=== PATIENT | female | born 1945 | race Caucasian/White ===

== ENCOUNTER 2017-06-09 11:55 | Outpatient (CLI) | payer MEDICARE ==
--- NOTE | 2017-06-09 13:35 | CT ---
CT OF THE THORAX WITH IV CONTRAST: Date: 06/09/17 INDICATION: History of shortness of breath and cough. COMPARISON: Chest radiograph dated 02/12/13. FINDINGS: There is severe centrilobular and paraseptal emphysema. There is a moderate amount of bullous disease present, particularly in the right lower lobe and both upper lobes. There is air space consolidation within the posterior segment of the right upper lobe, as well as within the inferior segment of the lingula. No pleural effusion is evident. There is a small sub-4 mm pulmonary nodule within the emergency medicine physician assistant olateral right lower lobe on image 51 of series 3. There are patchy reticular nodularities seen withi n the posterior segment of the right lower lobe. There is an enlarged precarinal lymph node measuring 1.4 cm. There is scattered vascular calcification involving the thoracic aorta. Visualized adrenal g lands are normal appearing. Liver and spleen are unremarkable. There is scattered degenerative and os teoarthritic change. IMPRESSION: 1. Findings of multifocal pneumonia involving the right upper lobe and lingula. There is some reticu lar nodularity also within the superior segment of the right lower lobe suspicious for component of b ronchiolitis. Recommend CT follow-up to resolution. 2. Severe emphysema. 3. Enlarged precarinal lymph node may be reactive in nature. CODE T. POS: [facility]
== END 2017-06-09 11:56 | disposition home or self-care (01) ==
LOC: CT 11:55
PROVIDERS: ATTEND Nurse Practitioner Family
DX: F17.200 Nicotine dependence, unspecified, uncomplicated (principal); R07.9 Chest pain, unspecified; J01.10 Acute frontal sinusitis, unspecified; R09.81 Nasal congestion; R05 Cough; J18.9 Pneumonia, unspecified organism; J43.9 Emphysema, unspecified; R59.0 Localized enlarged lymph nodes; R91.8 Other nonspecific abnormal finding of lung field
CPT/HCPCS: 71260

== ENCOUNTER 2017-06-10 11:11 | Inpatient (IN) | payer MEDICARE ==
[2017-06-10 12:08] LABS: #Eosinphils 0.1 thou/uL (0.0-0.7); #Lymphocytes 1.5 thou/uL (1.20-3.40); #Monocytes 1.4 thou/uL (0.11-0.59); #Neutrophils 10.6 thou/uL (1.40-6.50); %Basophils 0.3 % (0.0-1.0); %Eosinophils 0.6 % (0.0-10.0); %Lymphocytes 10.7 % (21.0-51.0); %Monocytes 10.2 % (0.0-10.0); %Neutrophils 78.2 % (42.0-75.0); Hemoglobin 13.4 g/dL (12.0-16.0); Mean Corpuscular HGB CONC 32.9 g/dL (32.0-36.0); Mean Corpuscular Hemoglobin 31.5 pg (27.0-31.0); Mean Corpuscular Volume 95.7 fl (81.0-99.0); Mean Platelet Volume 7.3 fL (7.4-10.4); Platelet Count 295 thou/uL (130-400); RBC Distribution Width 11.3 % (11.5-14.5); Red Blood Cell (RBC) Count 4.25 mill/uL (4.20-5.40); White Blood Cell (WBC) Count 13.5 thou/uL (4.8-10.8)
[2017-06-10] MEDS ORDERED: Azithromycin 500 MG VIAL ONE (12:30)
[2017-06-10 12:31] LABS: ALT (SGPT) 14 U/L (8-55); AST (SGOT) 19 U/L (5-34); Albumin 4.1 g/dL (3.4-4.8); Alkaline Phosphatase 82 U/L (40-150); Anion Gap 14 mmol/L (10-20); BUN (Urea Nitrogen) 15 mg/dL (9.8-20.1); Bilirubin, Total 0.6 mg/dL (0.2-1.2); Calc. Creatinine Clearance 0 mL/min (70-130); Calcium 9.8 mg/dL (7.8-10.44); Carbon Dioxide 22 mmol/L (23-31); Chloride 104 mmol/L (98-107); Estimated GFR-MDRD 69; Globulin 3.4 g/dL (2.4-3.5); Glucose 98 mg/dL (83-110); Potassium 4.2 mmol/L (3.5-5.1); Protein, Total 7.5 g/dL (6.0-8.3); Sodium 136 mmol/L (136-145)
[2017-06-10 12:47] LABS: Bilirubin Negative (Negative); Blood, Urine Moderate (Negative); Clarity CLEAR (Clear); Glucose, Urine (Dipstick) Negative (Negative); Leukocyte Small (Negative); Nitrite Negative (Negative); Protein, Urine (Dipstick) 30 mg/dL (Neg-Trace); Specific Gravity, Urine 1.014 (1.002-1.036); Urobilinogen 0.2 mg/dL (0.2-1.0)
[2017-06-10 12:50] LABS: Bacteria/HPF None Seen HPF (None Seen); Hyaline Casts/LPF 0-3 HYALINE CAST LPF (0-3 Hyaline); Pathc Cast-AUWi Flag 0.14 (0-2.49); Squamous Epithelial 0-3 HPF (0-3); WBC/HPF 0-3 HPF (0-3)
[2017-06-10] MEDS ORDERED: ISOVUE-370 76%-LOCM 1 ML ONE (13:12)
[2017-06-10] MEDS ORDERED: methylPREDNISolone Sod Succ/PF 125 MG/2 ML VIAL ONE (13:22)
[2017-06-10] MEDS ORDERED: Albuterol Sulfate 2.5 mg/3 ml Neb NEB PRN (13:29)
[2017-06-10] MEDS ORDERED: Sodium Chloride 0.9% 500 ML IV SCH (14:00)
[2017-06-10] MEDS ORDERED: Acetaminophen 325 MG TAB PO PRN (14:14)
--- NOTE | 2017-06-10 14:59 | HP ---
PRIMARY CARE PHYSICIAN: Ric Myers D.O. PRESENTING COMPLAINT: Shortness of breath. HISTORY OF PRESENT ILLNESS: Ms. Hien Byrd is a 72-year-old female with a past medical history of [place] PD and hypothyroidism, who presents to the emergency room with complaints of shortness of breath, whi ch has been on for the past 3 weeks. It is associated with cough productive of yellowish sputum and subjective fevers. She went to her nurse practitioner, who placed her on a 10-day treatment of amoxi cillin for upper respiratory tract infection. However, her symptoms persisted and she presented to [facility] emergency room yesterday after being sent in from her outpatient care provider for a CT scan. The CT scan showed multilobar right-sided pneumonia, and she was sent to the emergency room for further care. At the emergency room today, she was found to be short of breath, slightly tachycardic. Labs were essentially normal, apart from an elevated WBC count of 13,500. She was started on nebulizer th erapy, given one dose of IV Solu-Medrol. She was also given IV ceftriaxone and azithromycin after bl ood cultures have been collected. She was then admitted for further care. PAST MEDICAL HISTORY: As stated in HPI. PAST SURGICAL HISTORY: Hysterectomy, bladder tumor removal, cataract surgery. FAMILY HISTORY: Reviewed and noncontributory. SOCIAL HISTORY: Smokes 3-4 cigarettes daily now. She reports she has cut down, but has a 50+ years of smoking. Does not drink alcohol or use illicit drugs. ALLERGIES: SULFA. HOME MEDICATIONS: Albuterol sulfate inhaler 2 puffs q.6 hours p.r.n. for shortness of breath, Centru m Silver, prednisone 20 mg b.i.d., Synthroid dose unconfirmed, tramadol 50 mg tablet 1-2 tablets p.o. q.6 hours p.r.n. for pain, vitamin D 5000 units daily, amoxicillin/potassium clavulanate 875 mg/125 mg tablet b.i.d., Mucinex 1200 mg b.i.d., minocycline dose unconfirmed. REVIEW OF SYSTEMS: Ten-point review of systems conducted and negative except as stated in HPI. Elder es chest pain, palpitations, PND, orthopnea, lower extremity edema. She has no abdominal or urinary symptoms. She is alert and well oriented. PHYSICAL EXAMINATION: GENERAL: Not in acute distress, sitting comfortably in bed. HEENT: Normocephalic, atraumatic. Not pale, anicteric. Moist mucous membrane. PERRLA. EOMI. RESPIRATORY: Reduced breath sounds bilaterally, but no overt wheezes, rales, or rhonchi. CARDIOVASCULAR: S1, S2, only with no murmurs, rubs, or gallops. Regular rate and rhythm. ABDOMEN: Soft, nontender, nondistended. Bowel sounds normoactive. No hepatosplenomegaly. NEUROLOGIC: Alert and well-oriented to time, place and person. No focal deficits. SKIN: Warm, dry, well-perfused. No rashes or lesions. MUSCULOSKELETAL: No edema. Full range of movement in all extremities. PSYCHIATRIC: Normal mood and affect. LABORATORY DATA: As stated in HPI. IMAGING: CT chest done yesterday with IV contrast revealed multifocal pneumonia involving the right upper lobe and lingula. There was also some reticular nodularity also within the superior segment of the right lower lobe suspicious for comment of bronchiolitis. Recommended CT followup to resolution . Also showed severe emphysema and enlarged precarinal lymph node, which may be reactive in nature. ASSESSMENT AND PLAN: 1. Pneumonia: As stated above, the patient has multilobar pneumonia. She has started on IV antibio tics, steroids, and nebulized bronchodilator therapy. We will monitor the patient's response. We wi ll also follow up on blood cultures. 2. Hypothyroidism: Patient is slightly tachycardic on arrival. TSH done yesterday was on the low s bhargavi. We will obtain a free T4 and continue Synthroid dose once it has been confirmed. 3. Chronic obstructive pulmonary disease: Patient is on home nebulizer. She does not seem to be in exacerbation. She has been started on steroids for treatment of pneumonia, as well as antibiotics a nd bronchodilator therapy. We will follow to resolution. CODE STATUS: FULL CODE. Deep venous thrombosis prophylaxis, subcutaneous heparin.
--- NOTE | 2017-06-10 17:42 | CT ---
CT ANGIOGRAM OF THE CHEST 06/10/17 COMPARISON: Chest CT 06/09/17. HISTORY: Shortness of breath, tachycardia, positive D-dimer. TECHNIQUE: Serial axial CT imaging at 2.5 mm intervals from thoracic inlet through upper abdomen with IV contras t using a Ct angiogram protocol. Coronal and oblique sagittal 3D reformatted imaging obtained. FINDINGS: There is no lymphadenopathy in the axillary or hilar regions. There is a stable mildly enlarged 1.3 c m precarinal lymph node. Imaged upper abdomen demonstrates a small hypodense lesion in the mid pole l eft kidney suggesting a cyst. The adrenal glands appear thickened but attain an adeniform shape. Ther e are scattered atherosclerotic calcifications of the imaged abdominal aorta and its branches. There is no significant pleural, pericardial, or mediastinal fluid. There is atherosclerotic calcifications of the aortic arch extending into the origin of the great vessels. There is extensive prominent emphysematous change seen throughout both lungs. There is a focal area of peripheral pleural based mass-like soft tissue density in the lingula/left u pper lobe anteriorly on axial image 55 measuring 1.8 cm in greatest transverse dimension, grossly unc hanged when compared to prior imaging performed 06/09/17. No focal area of pulmonary parenchymal opacity or mass/nodule seen in the left lower lobe. There is a focal area of mass-like consolidative change within the posterior aspect of the right uppe r lobe, best seen on image 34 measuring 4.6 x 4.1 cm, similar when compared to the 05/13/17 exam as wel l. There is either cavitary change or air bronchogram formation associated with this area of abnormal ity. The right middle lobe demonstrates no focal consolidation, mass lesion or nodule. The right lowe r lobe demonstrates no focal consolidation, mass lesion or nodule. Review of the pulmonary arterial vasculature demonstrates no evidence for acute pulmonary embolism. R eview of the osseous structures demonstrate scattered degenerative change within the imaged spine. IMPRESSION: 1. Focal areas of mass-like consolidative change noted in left upper lobe anteriorly and right u pper lobe posteriorly, unchanged when compared to 05/13/17 exam. Findings are most concerning for multi focal infectious pneumonitis. Followup to resolution in 4-6 weeks advised. 2. Severe emphysematous change. 3. No evidence for pulmonary embolism. POS: [facility]
[2017-06-10] MEDS ORDERED: Acetaminophen 325 MG TAB ONE (17:55)
[2017-06-10] MEDS ORDERED: guaiFENesin ER 600 MG TAB PO SCH (21:00)
[2017-06-10] MEDS: Heparin 5,000 UNITS/ML VIAL SC SCH ×2 (21:28→21:38)
[2017-06-10] MEDS: Docusate 100 MG CAP PO SCH (21:38)
[2017-06-10] MEDS: guaiFENesin ER 600 MG TAB PO SCH (21:38)
[2017-06-10] MEDS: Melatonin 3 MG TAB PO SCH ×2 (22:11→22:27)
[2017-06-10 22:15] VITALS: BMI 24.5
[2017-06-11 04:30] LABS: #Lymphocytes 0.8 thou/uL (1.20-3.40); #Monocytes 0.3 thou/uL (0.11-0.59); #Neutrophils 7.8 thou/uL (1.40-6.50); %Eosinophils 0.1 % (0.0-10.0); %Lymphocytes 8.4 % (21.0-51.0); %Monocytes 3.5 % (0.0-10.0); Hemoglobin 11.9 g/dL (12.0-16.0); Mean Corpuscular HGB CONC 33.6 g/dL (32.0-36.0); Mean Corpuscular Hemoglobin 32.1 pg (27.0-31.0); Mean Corpuscular Volume 95.6 fl (81.0-99.0); Mean Platelet Volume 7.5 fL (7.4-10.4); Platelet Count 271 thou/uL (130-400); RBC Distribution Width 11.1 % (11.5-14.5); Red Blood Cell (RBC) Count 3.69 mill/uL (4.20-5.40); White Blood Cell (WBC) Count 8.9 thou/uL (4.8-10.8)
[2017-06-11 04:40] LABS: Anion Gap 12 mmol/L (10-20); BUN (Urea Nitrogen) 19 mg/dL (9.8-20.1); Calc. Creatinine Clearance 62 mL/min (70-130); Calcium 9.4 mg/dL (7.8-10.44); Carbon Dioxide 23 mmol/L (23-31); Chloride 107 mmol/L (98-107); Estimated GFR-MDRD 76; Glucose 212 mg/dL (83-110); Sodium 138 mmol/L (136-145)
[2017-06-11] MEDS ORDERED: predniSONE 20 MG TAB PO SCH ×3 (08:00→09:45)
[2017-06-11] MEDS ORDERED: cefTRIAXone\\ROCEPHIN 1 GM, Syringe 0.4 ML in Sterile Water 9.6 ML SLOW IVP SCH (09:00)
[2017-06-11] MEDS ORDERED: cefTRIAXone\\ROCEPHIN 1 GM in Sodium Chloride 0.9% 100 ML IVPB SCH (09:00)
[2017-06-11] MEDS ORDERED: Azithromycin 250 MG TAB PO SCH (09:00)
[2017-06-11] MEDS: guaiFENesin ER 600 MG TAB PO SCH (09:03)
[2017-06-11] MEDS: Docusate 100 MG CAP PO SCH ×2 (09:03→20:40)
[2017-06-11] MEDS: Heparin 5,000 UNITS/ML VIAL SC SCH ×3 (09:04→20:42)
[2017-06-11] MEDS: Ibuprofen 200 MG TAB PO PRN ×3 (10:53→20:41)
--- NOTE | 2017-06-11 15:20 | PQF ---
CLINICAL DOCUMENTATION IMPROVEMENT CLARIFICATION FORM: ICD-10 Updated PLEASE DO AN ADDENDUM TO THE PROGRESS NOTE WITH ANY DOCUMENTATION UPDATES OR ADDITIONS AND CARRY THROUGH TO DC SUMMARY. THANK YOU. DATE: 06/11/17 ATTN: DR. BLAS Please exercise your independent, professional judgment in responding to the clarification form. Clinical indicators are provided on the bottom of this form for your review Please check appropriate box(es): [ ] Sepsis due to: (Pna, UTI, gangrenous gall bladder, etc.) Due to: [ ] Device (please specify) [ ] Implant [ ] Graft [ ] Infusion [ ] SIRS due to non-infectious process (please specify etiology) [ ] with organ dysfunction [ ] without organ dysfunction [ ] Severe sepsis with acute organ dysfunction of: (Examples: respiratory failure, encephalopathy, acute kidney failure, other) [ ] Septic Shock [ ] Localized infection without sepsis [ ] Other diagnosis [ ] Unable to determine In addition, please specify: Present on Admission (POA): [ ] Yes [ ] No [ ] Unable to determine For continuity of documentation, please document condition throughout progress notes and discharge summary. Thank You. 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 All Rights Reserved [email or web address] [place] Office: [phone] [facility]
--- NOTE | 2017-06-11 16:40 | PDOC.PN ---
- Subjective Encounter Start Date: 06/11/17 Encounter Start Time: 09:45 -: old records requested/rev Pt seen and examined, chart reviewed in its entirety, this is my first visit with this patient. Pt seen on the medical [facility], transferred by Dr eric earlier Pt states breathing is at baseline, 98% on 2l NC, feels tired. explained anemia and stability to pt, informed she would start on iron replacememnt. No F/C, no N/v/D/C, no CP, some Clemons, no orthopnea - Objective Resuscitation Status: Resuscitation Status FULL:Full Resuscitation MAR Reviewed: Yes Vital Signs & Weight: Vital Signs (12 hours) Temp Pulse Resp BP Pulse Ox 06/11/17 16:30 98.4 F 92 18 123/55 L 94 L 06/11/17 12:00 98.0 F 84 16 119/71 96 06/11/17 08:00 97.9 F 86 16 06/11/17 07:53 97.9 F 86 16 102/53 L 95 06/11/17 06:57 83 16 94 L 06/11/17 05:16 97.8 F 78 18 108/64 95 Weight Weight 129 lb 8 oz I&O: 06/10/17 06/11/17 06/12/17 06:59 06:59 06:59 Intake Total 740 480 Balance 740 480 Result Diagrams: 06/11/17 04:02 06/11/17 04:02 Additional Labs: Accuchecks 06/11/17 04:47 POC Glucose 172 H Radiology Reviewed by me: Yes EKG Reviewed by me: Yes Phys Exam - Physical Examination Constitutional: NAD HEENT: PERRLA, moist MMs, sclera anicteric, oral pharynx no lesions Neck: no nodes, no JVD, supple, full ROM Respiratory: no wheezing, no rales, no rhonchi, clear to auscultation bilateral Cardiovascular: RRR, no significant murmur, no rub Gastrointestinal: soft, non-tender, no distention, positive bowel sounds Musculoskeletal: pulses present, edema present Neurological: non-focal, normal sensation, moves all 4 limbs Lymphatic: no nodes Psychiatric: normal affect, A&O x 3 Skin: no rash, normal turgor, cap refill <2 seconds Dx/Plan (1) Iron deficiency anemia Code(s): D50.9 - IRON DEFICIENCY ANEMIA, UNSPECIFIED Status: Chronic Qualifiers: Iron deficiency anemia type: inadequate dietary iron intake Qualified Code( s): D50.8 - Other iron deficiency anemias Comment: iron deficiiency seen exacerbated by Tib/Fib fracture recentyl, but not improving, add in FeSOR BID (2) COPD (chronic obstructive pulmonary disease) Status: Acute Qualifiers: COPD type: COPD with acute exacerbation Qualified Code(s): J44.1 - Chronic obstructive pulmonary disease with (acute) exacerbation Comment: nebs, steroids, o2, wean to keep sats 90-92% on 3L at home (3) Hypothyroidism Code(s): E03.9 - HYPOTHYROIDISM, UNSPECIFIED Status: Chronic Qualifiers: Hypothyroidism type: acquired Qualified Code(s): E03.9 - Hypothyroidism, unspecified (4) PNA (pneumonia) Code(s): J18.9 - PNEUMONIA, UNSPECIFIED ORGANISM Status: Acute Qualifiers: Pneumonia type: due to unspecified organism Laterality: unspecified laterality Lung location: unspecified part of lung Qualified Code(s): J18.9 - Pneumonia, unspecified organism Comment: community acquired, covered with antibiotics for now - Plan cont current plan of care, PT/OT, respiratory therapy, out of bed/ambulate * .
[2017-06-11] MEDS: Ferrous Sulfate 325 MG TAB PO SCH (19:08)
[2017-06-11] MEDS ORDERED: Non-Formulary Item 1 EACH (Zolpidem Tartrate [Ambien] 10 MG) PO SCH (21:00)
[2017-06-11] MEDS ORDERED: Zolpidem Tartrate 5 MG TAB PO SCH (21:00)
[2017-06-12 04:46] LABS: #Lymphocytes 2.4 thou/uL (1.20-3.40); #Monocytes 0.8 thou/uL (0.11-0.59); #Neutrophils 13.1 thou/uL (1.40-6.50); %Eosinophils 0.1 % (0.0-10.0); %Lymphocytes 14.9 % (21.0-51.0); %Monocytes 4.8 % (0.0-10.0); %Neutrophils 80.2 % (42.0-75.0); Hemoglobin 11.2 g/dL (12.0-16.0); Mean Corpuscular HGB CONC 32.9 g/dL (32.0-36.0); Mean Corpuscular Hemoglobin 31.2 pg (27.0-31.0); Mean Corpuscular Volume 94.7 fl (81.0-99.0); Mean Platelet Volume 7.1 fL (7.4-10.4); Platelet Count 294 thou/uL (130-400); RBC Distribution Width 11.3 % (11.5-14.5); Red Blood Cell (RBC) Count 3.58 mill/uL (4.20-5.40); White Blood Cell (WBC) Count 16.4 thou/uL (4.8-10.8)
[2017-06-12 05:00] LABS: Anion Gap 12 mmol/L (10-20); BUN (Urea Nitrogen) 20 mg/dL (9.8-20.1); Calc. Creatinine Clearance 59 mL/min (70-130); Calcium 9.2 mg/dL (7.8-10.44); Carbon Dioxide 25 mmol/L (23-31); Chloride 107 mmol/L (98-107); Estimated GFR-MDRD 71; Glucose 205 mg/dL (83-110); Potassium 3.9 mmol/L (3.5-5.1); Sodium 140 mmol/L (136-145)
[2017-06-12] MEDS: Ibuprofen 200 MG TAB PO PRN ×3 (05:10→15:33)
[2017-06-12] MEDS ORDERED: Levothyroxine Sodium 100 MCG TAB PO SCH ×3 (06:00)
[2017-06-12] MEDS ORDERED: predniSONE 20 MG TAB PO SCH (08:00)
[2017-06-12] MEDS: Heparin 5,000 UNITS/ML VIAL SC SCH ×2 (08:16→15:33)
[2017-06-12] MEDS: Docusate 100 MG CAP PO SCH (08:17)
[2017-06-12] MEDS ORDERED: AST PO SCH (09:00)
[2017-06-12] MEDS ORDERED: DHA PO SCH (09:00)
[2017-06-12] MEDS ORDERED: PHOSPHO PO SCH (09:00)
[2017-06-12] MEDS ORDERED: Non-Formulary Item 1 EACH (Multivit-Min/Iron/Folic/Lutein [Centrum Silver Women] 1 TAB) PO SCH (09:00)
[2017-06-12] MEDS ORDERED: Multivit, Therapeutic 1 TAB PO SCH (09:00)
[2017-06-12] MEDS ORDERED: VITAMIN D 5000 UNIT PO SCH (09:00)
[2017-06-12] MEDS ORDERED: Non-Formulary Item 1 EACH (Ubidecarenone [Coq-10] 50 MG) PO SCH (09:00)
[2017-06-12] MEDS ORDERED: [UNRECOGNIZED DRUG - OTHER] PO SCH (09:00)
[2017-06-12] MEDS ORDERED: KRILL PO SCH (09:00)
[2017-06-12] MEDS ORDERED: SYNTHROID 100 MCG PO SCH (09:00)
[2017-06-12] MEDS ORDERED: Ubidecarenone 50 MG CAP PO SCH (09:00)
[2017-06-12] MEDS ORDERED: EPA PO SCH (09:00)
[2017-06-12] MEDS: Ferrous Sulfate 325 MG TAB PO SCH (10:08)
--- NOTE | 2017-06-12 11:27 | PDOC.PN ---
- Subjective Encounter Start Date: 06/11/17 Encounter Start Time: 09:45 -: old records requested/rev Pt seen and examine, chart reviewed in its entirety, this is my first visit with this patient Pt admitted for SOB, chest pressure, transferred to R/O PE. On arrival CTa negative. pt requesting CT brain due to elevated DDimer and left sided shooting headache to r/o blood clot. Just has contrast, explained low yield and DDimer barely abnormal but i would discuss with radiology also requesting ibuprofen for pain as tylenol not effective. also wants her ambien 10mg at bedtime No F/C, no N/V/D/c, no acute overnight events 10 point ROS performed and neg for all systems except as per HPI - Objective Resuscitation Status: Resuscitation Status FULL:Full Resuscitation MAR Reviewed: Yes Vital Signs & Weight: Vital Signs (12 hours) Temp Pulse Pulse Pulse Pulse Resp BP 06/12/17 09:16 90 93 96 126/74 06/12/17 08:00 97.5 F L 79 16 06/12/17 00:31 84 12 BP Pulse Ox Pulse Ox Pulse Ox Pulse Ox 06/12/17 09:16 95 95 91 L 06/12/17 08:00 114/62 90 L 06/12/17 00:31 97 Weight Weight 129 lb 8 oz I&O: 06/11/17 06/12/17 06/13/17 06:59 06:59 06:59 Intake Total 740 2760 Balance 740 2760 Result Diagrams: 06/12/17 04:32 06/12/17 04:32 Radiology Reviewed by me: Yes EKG Reviewed by me: Yes Phys Exam - Physical Examination Constitutional: NAD HEENT: PERRLA, moist MMs, sclera anicteric, oral pharynx no lesions Neck: no nodes, no JVD, supple, full ROM Respiratory: no wheezing, no rales, no rhonchi, clear to auscultation bilateral Cardiovascular: RRR, no significant murmur, no rub Gastrointestinal: soft, non-tender, no distention, positive bowel sounds Musculoskeletal: no edema, pulses present Neurological: non-focal, normal sensation, moves all 4 limbs Lymphatic: no nodes Psychiatric: normal affect, A&O x 3 Skin: no rash, normal turgor, cap refill <2 seconds Dx/Plan (1) COPD (chronic obstructive pulmonary disease) Status: Acute Qualifiers: COPD type: COPD with acute exacerbation Qualified Code(s): J44.1 - Chronic obstructive pulmonary disease with (acute) exacerbation Comment: nebs, steroids, o2, wean to keep sats 90-92% no O2. on RA already (2) Hypothyroidism Code(s): E03.9 - HYPOTHYROIDISM, UNSPECIFIED Status: Chronic Qualifiers: Hypothyroidism type: acquired Qualified Code(s): E03.9 - Hypothyroidism, unspecified (3) PNA (pneumonia) Code(s): J18.9 - PNEUMONIA, UNSPECIFIED ORGANISM Status: Acute Qualifiers: Pneumonia type: due to unspecified organism Laterality: unspecified laterality Lung location: unspecified part of lung Qualified Code(s): J18.9 - Pneumonia, unspecified organism Comment: community acquired, covered with antibiotics for now - Plan cont current plan of care, continue antibiotics, respiratory therapy, out of bed /ambulate * .
[2017-06-12] MEDS ORDERED: Gadobenate Dimeglumine 529 MG/1 ML (20ML VIAL) ONE (13:26)
--- NOTE | 2017-06-12 15:21 | MRI ---
BRAIN MRI WITH AND WITHOUT CONTRAST: CLINICAL HISTORY: Headache. Elevated D-dimer with concern for dural sinus thrombosis. FINDINGS: Ventricular system is age-appropriate in size. There is no acute territorial infarction, intracrania l mass effect, or midline shift. There are scattered areas of white matter signal alteration present bilaterally favoring mild chronic microvascular ischemic disease. No hemorrhagic susceptibility. 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 No s ignificant filling defects of the contrast opacified dural venous sinuses. Skull flow voids are blas nt. There is mild parenchymal volume loss with increased CSF overlying the left frontal regions. IMPRESSION: 1. No acute intracranial abnormalities. 2. Findings most consistent with mild chronic microvascular ischemic disease. POS: [facility]
--- NOTE | 2017-06-12 15:28 | MRI ---
THREE D TIME OF FLIGHT MRV BRAIN WITH 3D VOLUME RENDERING: CLINICAL INDICATION: Headache, elevated D-dimer with clinical concern for dural sinus thrombosis. FINDINGS: The superior sagittal sinus, inferior sagittal sinus, straight sinus, transverse sinuses, and sigmoid sinuses reveal no significant filling defect. There is flow-related artifactual diminished signal a t the medial aspect of the left transverse sinus. There is also flow-related signal alteration at th e right sigmoid sinus and right internal jugular vein. IMPRESSION: There is no significant abnormality at the dural vein sinuses. POS: [facility]
[2017-06-12 18:19] VITALS: BP 146/83; TEMP 98.1
== END 2017-06-12 19:05 | disposition home or self-care (01) | DRG 190 ==
LOC: ERS 11:11 → ERHOLD 13:29 → T4-B 20:55
PROVIDERS: ADMIT Internal Medicine; ATTEND Internal Medicine
DX: J44.0 Chronic obstructive pulmonary disease with (acute) lower respiratory infection (principal); J18.9 Pneumonia, unspecified organism; J44.1 Chronic obstructive pulmonary disease with (acute) exacerbation; E03.9 Hypothyroidism, unspecified; J44.9 Chronic obstructive pulmonary disease, unspecified; Z88.2 Allergy status to sulfonamides; Z90.710 Acquired absence of both cervix and uterus; D50.9 Iron deficiency anemia, unspecified
CPT/HCPCS: 36415; 36416; 70544; 70553; 71260; 71275; 80048; 80053; 81003; 81015; 83605; 83735; 83880; 84439; 84443; 85025; 85379; 87040; 87070; 87077; 87149; 93005; 94640; 96365; 96375; A4216; A9579; G8978-GP-CH; G8979-GP-CH; G8980-GP-CH; G8987-GO-CI; G8988-GO-CI; G8989-GO-CI; J0456; J0696; J1644; J2920; J2930; J7506; J7620

== ENCOUNTER 2018-10-06 11:04 | Outpatient (CLI) | payer MEDICARE, OTHER | END 2018-10-06 11:05 | disposition home or self-care (01) | LOC: CTENTCT 11:04 | PROVIDERS: ATTEND Otolaryngology Plastic Surgery within the Head & Neck | DX: J32.9 Chronic sinusitis, unspecified (principal) | CPT/HCPCS: 70486 ==

== ENCOUNTER 2018-12-03 13:29 | Outpatient (CLI) | payer MEDICARE, OTHER ==
--- NOTE | 2018-12-03 14:26 | MMO ---
Bilateral MAMMO Bilat Screen [facility]LENIN. CLINICAL HISTORY: Patient is 73 years old and is seen for screening. The patient has no family history of breast cancer. The patient has no personal history of cancer. VIEWS: The views performed were: bilateral craniocaudal with tomosynthesis and bilateral mediolateral oblique with tomosynthesis. FILMS COMPARED: The present examination has been compared to prior imaging studies performed at [facility] on 12/26/2015, and at [facility] on 04/24/2004, 09/12/2006 and 08/06/2010. This study has been interpreted with the assistance of computer-aided detection. MAMMOGRAM FINDINGS: The breasts are heterogeneously dense, which could obscure a lesion on mammography. There are stable benign appearing calcifications seen in both breasts. There are no suspicious masses, calcifications or areas of architectural distortion. There are no suspicious masses, suspicious calcifications, or new areas of architectural distortion. IMPRESSION: THERE IS NO MAMMOGRAPHIC EVIDENCE OF MALIGNANCY. A ROUTINE FOLLOW-UP MAMMOGRAM IN 1 YEAR IS RECOMMENDED. THE RESULTS OF THIS EXAM WERE SENT TO THE PATIENT. ACR BI-RADS Category 2 - Benign finding MAMMOGRAPHY NOTE: 1. A negative mammogram report should not delay a biopsy if a dominant of clinically suspicious mass is present. 2. Approximately 10% to 15% of breast cancers are not detected by mammography. 3. Adenosis and dense breasts may obscure an underlying neoplasm. Reported by: LEE COLIN MD Electonically Signed: [id number]
== END 2018-12-03 13:30 | disposition home or self-care (01) ==
LOC: BICMAMMO 13:29
PROVIDERS: ATTEND Nurse Practitioner Family
DX: Z12.31 Encounter for screening mammogram for malignant neoplasm of breast (principal)
CPT/HCPCS: 77063; 77067